=== PATIENT | male | born 1980 | race African-American/Black ===

== ENCOUNTER 2017-02-20 18:50 | Emergency (ER) | payer OTHER ==
[~2017-02-20] VITALS: Ht 172.7 cm; Wt 104.3 kg
--- OUTSIDE RECORDS SUMMARY | 2017-02-20 19:03 | XMS REPORT ---
Author Author TERRANCE HAMMONDS Organization [employer] Address Unknown Phone Unavailable Care Team Providers Care Traffic Assistant Name Role Phone TERRANCE HAMMONDS CP Unavailable Allergies No Known Allergies Problems Problem Type Condition ICD-9 Code Onset Dates Condition Status Problem Insomnia, unspecified 780.52 Active Assessment Dental examination V72.2 Active Problem Screening examination for venereal disease V74.5 Active Medications No Known Medications Procedures Procedure Coding System Code Date INTRAORL-PERIAPICAL 1 FILM 77359 CPT-4 D0220 December 07, 2014 INTRAORL-PERIAPICAL EA ADD FILM CPT-4 D0230 December 07, 2014 COMP ORAL EVALUATION - NEW/EST PT CPT-4 D0150 December 07, 2014 Dental Outreach adjust balance CPT-4 DENOR December 07, 2014 BITEWINGS - FOUR FILMS CPT-4 D0274 December 07, 2014 INTRAORL-PERIAPICAL EA ADD FILM CPT-4 D0230 December 07, 2014 TOPICAL FLUORIDE VARNISH CPT-4 D1206 December 07, 2014 PROPHYLAXIS - ADULT CPT-4 D1110 December 07, 2014 Results No Known Results Summary Purpose [employer] Submission
--- OUTSIDE RECORDS SUMMARY | 2017-02-20 19:04 | XMS REPORT | Continuity of Care Document ---
Author Author [facility] Address Unknown Phone Unavailable Allergies Medications Problems Date Dx Coded Attending Type Code Diagnosis Diagnosed By 06/20/2011 PETER PEREZ DO V69.2 sexually active high-risk 06/20/2011 KELLY LAMA APRN V69.2 sexually active high-risk 03/17/2013 PETER PEREZ DO V74.5 SCREENING EXAMINATION FOR VENEREAL DISEASE 03/17/2013 KELLY LAMA APRN V74.5 SCREENING EXAMINATION FOR VENEREAL DISEASE 11/27/2013 KELLY LAMA APRN 780.52 INSOMNIA UNSPECIFIED Procedures Code [place] [address] ROUTINE VENIPUNCTURE 03/17/2013 04479 SYPHILLIS-STATE LAB 03/17/2013 34730 GC/CHLAM URINE (STATE) 03/17/2013 55578 HIV ANTIBODIES ([facility]) 03/19/2013 Results Encounters ACCT No. Visit Date/Time Discharge Status Pt. Type Provider Facility Loc./Unit Complaint [id number] 11/27/2013 08:55:00 11/27/2013 23: 59:59 CLS Outpatient KELLY LAMA APRN [id number] 03/17/2013 16:11:00 03/17/2013 23: 59:59 CLS Outpatient PETER PEREZ DO [id number] 07/13/2015 15:26:59 ACT Unknown
[2017-02-20 19:13] LABS: MEAN PLATELET VOLUME 11.2 FL (7.4-10.4); RED BLOOD COUNT 4.57 10^6/uL (4.35-5.85); RED CELL DISTRIBUTION WIDTH 13.7 % (10.0-14.5); WHITE BLOOD COUNT 4.3 10^3/uL (4.3-11.0)
[2017-02-20] MEDS ORDERED: IOHEXOL 350 MG/ML 100 ML (OMNIPAQUE 350) VIAL IV ONE (19:15)
[2017-02-20] MEDS ORDERED: NS 100 ML (IVPB) BAG IV ONE (19:15)
[2017-02-20] MEDS ORDERED: fentaNYL INJECTION 100 MCG/2 ML AMP IVP ONE (19:15)
[2017-02-20 19:39] LABS: ALANINE AMINOTRANSFERASE 13 U/L (0-55); ALCOHOL < 10 MG/DL (<10); ANION GAP 8 MMOL/L (5-14); ASPARTATE AMINO TRANSFERASE 19 U/L (5-34); BILIRUBIN,DIRECT 0.1 MG/DL (0.0-0.3); BILIRUBIN,INDIRECT 0.3 MG/DL; BILIRUBIN,TOTAL 0.4 MG/DL (0.1-1.0); BLOOD UREA NITROGEN 11 MG/DL (7-18); BUN/CREATININE RATIO 10; CALCIUM 8.7 MG/DL (8.5-10.1); CARBON DIOXIDE 23 MMOL/L (21-32); CHLORIDE 106 MMOL/L (98-107); CREATININE SERUM 1.13 MG/DL (0.60-1.30); GFR ESTIMATED > 60; GLUCOSE 116 MG/DL (70-105); POTASSIUM 5.1 MMOL/L (3.6-5.0); SODIUM 137 MMOL/L (135-145); TOTAL PROTEIN 6.8 GM/DL (6.4-8.2)
--- NOTE | 2017-02-20 19:45 | ED Trauma-Multisystem ---
General Chief Complaint: Trauma EMS/Air Arrival Activat Stated Complaint: FALL Nursing Triage Note: patient was on sink in half-way cell, patient states he planned to fall forward to hurt himself, patient states that he slipped and fell backwards, patient reports he has severe back pain and decreased sensation in his lower extremities. patient also had emesis x 1. c-collar applied during triage. patient denies LOC Source of Information: Patient, EMS, Police (Jade rosa) Exam Limitations: No Limitations History of Present Illness Time Seen by Provider: 19:00 Initial Comments This 36-year-old young man presents to the emergency room from the local half-way where he sustained injury to his back after falling off a sink. Patient had an emotionally difficult afternoon when he learned that a loved one had . He became suicidal at that time and decided to jump off of the sink in his cell in effort to injure his head. He reports changing his mind once he was on the sink but then slipped backward falling onto a toilet. Senior Living guards report that he was draped over the toilet face up with his back extended over the toilet. His face was up against the wall. He complains of headache and lower back pain. He has been unable to move his lower extremities since the injury. Senior Living guards removed him from the toilet. EMS reports he has been unable to move his lower extremities since their arrival. He was incontinent of a small amount of stool. Patient did strike his head and vomited afterwards. There was no loss of consciousness. Patient denies suicidal ideation at the moment. Type II trauma activation was paged at 19:07. Patient did complain of some mild neck discomfort for me on exam. C-collar was placed. Allergies and Home Medications Allergies Uncoded Allergies: shellfish (Allergy, Unknown, NAUSEA, 02/20/17) Nausea, difficulty breathing Home Medications No Active Prescriptions or Reported Meds Constitutional: no symptoms reported Eyes: No Symptoms Reported Ears: No Symptoms Reported Nose: No Symptoms Reported Mouth: Other (mild jaw pain) Throat: No Symptoms to Report Respiratory: other (pain with inspiration) Cardiovascular: No Symptoms Reported Gastrointestinal: see HPI, vomiting Genitourinary: no symptoms reported Musculoskeletal: no symptoms reported Skin: no symptoms reported Psychiatric/Neurological: See HPI Past Lnmhwfx-Ioiclz-Soxgfq Hx Patient Social History Alcohol Use: Denies Use Recreational Drug Use: No Smoking Status: Never a Smoker Recent Foreign Travel: No Contact w/Someone Who Travel: No Recent Infectious Disease Expo: No Surgeries HX Surgeries: No Respiratory Hx Respiratory Disorders: No Cardiovascular Hx Cardiac Disorders: No Neurological Hx Neurological Disorders: No Reproductive System Hx Reproductive Disorders: No Genitourinary Hx Genitourinary Disorders: No Gastrointestinal Hx Gastrointestinal Disorders: No Musculoskeletal Hx Musculoskeletal Disorders: No Endocrine Hx Endocrine Disorders: No HEENT HX ENT Disorders: No Cancer Hx Cancer: No Psychosocial Hx Psychiatric Problems: Yes Behavioral Health Disorders: Anxiety Integumentary HX Skin/Integumentary Disorder: No Physical Exam General Appearance: WD/WN, Mild Distress Eyes: Bilateral Eye Normal Inspection, Bilateral Eye PERRL, Bilateral Eye EOMI Ears, Nose, Throat: Hearing Grossly Normal Neck: Normal Inspection, Supple, Tender Midline (posterior cervical spine) Cardiovascular: Regular Rate, Rhythm, No Edema, No Murmur Respiratory: Chest Non Tender, Lungs Clear, Normal Breath Sounds, No Accessory Muscle Use, No Respiratory Distress Gastrointestinal: Normal Bowel Sounds, Non Tender, Soft Genital/Rectal: Normal Genital Exam Back: Normal Inspection, No Vertebral Tenderness (lumbar spine) Extremity: Normal Inspection, No Pedal Edema Neurologic/Psychiatric: Alert, Oriented x3, barrel cutter II-XII Norm as Tested, Other ( suicidal ideation expressed just prior to injury. Patient has light sensation throughout the lower extremities bilaterally. Sensation returns to normal with pinprick around the inguinal canals bilaterally. Patient cannot move either lower extremity to any extent. 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) Skin: Normal Color, Warm/Dry Jose Coma Score Best Eye Response (Jose): (4) Open Spontaneously Best Verbal Response ([place]): (5) Oriented Best Motor Response ([place]): (6) Obeys Commands [place] Total: 15 Progress/Results/Core Measures Results/Orders Lab Results Laboratory Tests Test 02/20/17 19:00 02/20/17 20:10 Range/Units White Blood Count 4.3 4.3-11.0 10^3/uL Red Blood Count 4.57 4.35-5.85 10^6/uL Hemoglobin 13.3 13.3-17.7 G/DL Hematocrit 39 L 40-54 % Mean Corpuscular Volume 86 80-99 FL Mean Corpuscular Hemoglobin 29 25-34 PG Mean Corpuscular Hemoglobin Concent 34 32-36 G/DL Red Cell Distribution Width 13.7 10.0-14.5 % Platelet Count 190 130-400 10^3/uL Mean Platelet Volume 11.2 H 7.4-10.4 FL Sodium Level 137 135-145 MMOL/L Potassium Level 5.1 H 3.6-5.0 MMOL/L Chloride Level 106 98-107 MMOL/L Carbon Dioxide Level 23 21-32 MMOL/L Anion Gap 8 5-14 MMOL/L Blood Urea Nitrogen 11 7-18 MG/DL Creatinine 1.13 0.60-1.30 MG/DL Estimat Glomerular Filtration Rate > 60 BUN/Creatinine Ratio 10 Glucose Level 116 H 70-105 MG/DL Calcium Level 8.7 8.5-10.1 MG/DL Total Bilirubin 0.4 0.1-1.0 MG/DL Direct Bilirubin 0.1 0.0-0.3 MG/DL Indirect Bilirubin 0.3 MG/DL Aspartate Amino Transf (AST/SGOT) 19 5-34 U/L Alanine Aminotransferase (ALT/SGPT) 13 0-55 U/L Alkaline Phosphatase 53 40-136 U/L Total Protein 6.8 6.4-8.2 GM/DL Albumin 4.0 3.2-4.5 GM/DL Serum Alcohol < 10 <10 MG/DL My Orders Orders - MTIZI MYRICK MD Cbc No Diff (02/20/17 19:04) Basic Metabolic Panel (02/20/17 19:04) Liver Panel (02/20/17 19:04) Alcohol (02/20/17 19:04) End Tidal Co2 (02/20/17 19:04) Monitor-Rhythm Ecg Trace Only (02/20/17 19:04) Saline Lock/Iv-Start (02/20/17 19:04) Ct Thoracic/Lumbar Spine Wo (02/20/17 19:04) Fentanyl Injection (Sublimaze Injection (02/20/17 19:15) Ua Culture If Indicated (02/20/17 19:10) Iohexol Injection (Omnipaque 350 Mg/Ml 1 (02/20/17 19:15) Ns (Ivpb) (Sodium Chloride 0.9% Ivpb Bag (02/20/17 19:15) Ct Head/Face/Cervical Wo (02/20/17 19:17) Ct Chest/Abdomen/Pelvis Wo (02/20/17 19:42) Vital Signs/I&O Intake and Output 02/21/17 00:00 Intake Total 900 ml Balance 900 ml Progress Note #1: Progress Note Patient was seen and examined. He was sent to CT scan for examination of the complete spine, chest, abdomen, pelvis, and head. He declined pain medication. C-collar was applied and remained in place. Progress Note #2: Time: 19:44 Progress Note Nursing staff called from CT stating patient has reservations about receiving contrast due to shellfish allergy. CT orders were changed to noncontrast studies. Progress Note #3: Time: 20:05 Progress Note Patient was able to independently urinate. He still declines pain medication. CT imaging was negative for acute injuries with the exception of possible injury to the right zygomatic arch. Patient does have pain in that area. Case had been discussed with Dr. Christopher, trauma surgeon master control technician. He agrees patient should be transferred to a tertiary care facility with neurosurgical services. MRI should be completed there for further evaluation. Progress Note #4: Time: 20:20 Progress Note Case was reviewed with Dr. Burton (neurosurgeon) and Dr. Scott (ER) at [facility]. Patient was accepted for transfer. Neurologic status has not changed. Vital signs have remained stable. Dr. uBrton requested reapplication of cervical all her prior to transfer. Law-enforcement will accompany patient on transfer but affidavit was completed as a precaution due to the suicidal ideation. Diagnostic Imaging Diagonstic Imaging: CT Plain Films/CT/US/NM/MRI: facial bones, c-spine, head Comments CT head, C-spine, and face. By me and report reviewed. See report below: NAME: MARGE LEBRON [facility] REC#: [id number] PT STATUS: REG ER : 1980 PHYSICIAN: MITZI MYRICK MD ADMIT DATE: 02/20/17/ER Signed Date of Exam: 02/20/17 CT HEAD/FACE/CERVICAL WO PROCEDURE: CT head, face, and cervical spine without contrast. TECHNIQUE: Multiple contiguous axial images were obtained through the head, neck, and facial bones without the use of intravenous contrast. Sagittal and coronal reformations through the cervical spine and facial bones were also performed. INDICATION: Injury. FINDINGS: The ventricles are normal in size, shape and position. There is no acute parenchymal edema, hemorrhage or mass. There is no extra-axial mass or hemorrhage. There is no skull fracture. Maxillofacial images show cortical irregularity involving the anterior portion of the right zygomatic arch which I believe represents a fracture at this site. If this is an acute fracture this is nondepressed. No other fracture is evident. The paranasal sinuses are well aerated. No intraorbital abnormality is seen. There is normal height and alignment of the cervical spine. Disc spaces are well maintained. There is no bony stenosis. There is no fracture or other acute abnormality. IMPRESSION: 1. Normal CT of the head. 2. XR of the facial bones show irregularity of the zygomatic arch anteriorly on the right but it is difficult to determinate if this represents residual of old injury or if this is an acute fracture and correlation with physical exam is necessary. No other acute abnormality is seen. 3. CT of the cervical spine shows no acute abnormality. Dictated by: Dictated on workstation # [id number] Dict: 02/20/171936 Trans: 02/20/171950 Interpreted by: JUAN ESPINOZA MD Electronically signed by: JUAN ESPINOZA MD 02/20/171950 Diagonstic Imaging: CT Plain Films/CT/US/NM/MRI: other (thoracic and lumbar spine) Comments CT of the spine viewed by me and report reviewed. See report below: NAME: MARGE LEBRON [facility] REC#: [id number] PT STATUS: REG ER : 1980 PHYSICIAN: MITZI MYRICK MD ADMIT DATE: 02/20/17/ER Signed Date of Exam: 02/20/17 CT THORACIC/LUMBAR SPINE WO INDICATION: Fall, back pain. Axial images were obtained through the thoracolumbar spine with sagittal and coronal reformations made. FINDINGS: There is normal height and alignment of the thoracolumbar vertebral bodies. Disc spaces are well maintained. No fracture or other acute abnormality is seen. No spinal canal encroachment. There is no soft tissue mass or edema. IMPRESSION: No acute abnormality is seen. Dictated by: Dictated on workstation # [id number] Dict: 02/20/171943 Trans: 02/20/171946 Interpreted by: JUAN ESPINOZA MD Electronically signed by: JUAN ESPINOZA MD 02/20/171946 Diagonstic Imaging: CT Plain Films/CT/US/NM/MRI: chest, abdomen, pelvis Comments CT chest, abdomen and pelvis without contrast viewed by me and report reviewed. See report below: NAME: MARGE LEBRON [facility] REC#: [id number] PT STATUS: REG ER : 1980 PHYSICIAN: MITZI MYRICK MD ADMIT DATE: 02/20/17/ER Signed Date of Exam: 02/20/17 CT CHEST/ABDOMEN/PELVIS WO PROCEDURE: CT chest, abdomen, and pelvis without contrast. TECHNIQUE: Multiple contiguous axial images were obtained through the chest, abdomen, and pelvis without the use of intravenous contrast. INDICATION: Fall. Pain. CT CHEST: The lungs are clear. There is no effusion or pneumothorax. There is no mediastinal mass or hemorrhage. There is no acute bony abnormality. CT ABDOMEN/PELVIS: The liver, spleen, pancreas and adrenals are normal. The kidneys, ureters and bladder are normal. No acute bowel abnormality is seen. There is no free intraperitoneal air or fluid. There is no acute bony abnormality. IMPRESSION: CT the chest, abdomen and pelvis shows no acute abnormality. Dictated by: Dictated on workstation # [id number] Dict: 02/20/171951 Trans: 02/20/172027 Interpreted by: JUAN ESPINOZA MD Electronically signed by: JUAN ESPINOZA MD 02/20/172027 Departure Impression Impression: Primary Impression: Fall with injury Qualified Codes: W19.XXXA - Unspecified fall, initial encounter Additional Impressions: Concussion without loss of consciousness Qualified Codes: S06.0X0A - Concussion without loss of consciousness, initial encounter Lower extremity paralysis Nausea and vomiting Qualified Codes: R11.2 - Nausea with vomiting, unspecified Paresthesia of lower extremity Suicidal ideation Lower back pain Qualified Codes: M54.5 - Low back pain Disposition: XFER SHT-TRM HOSP Condition: Stable/Unchanged Transfer Transfer Notes Patient transferred to the emergency room at [facility] under the care of Dr. Scott with Dr. Burton consultation. Transfer Time: 21:06 Method of Transfer: EMS Departure-Patient Inst. Decision time for Depature: 21:06 Referrals: NO,LOCAL PHYSICIAN (PCP/Family) Primary Care Physician Scripts No Active Prescriptions or Reported Meds MITZI MYRICK MD Feb 20, 2017 19:45
--- NOTE | 2017-02-20 19:49 | Diagnostic Imaging Report ---
PROCEDURE: CT head, face, and cervical spine without contrast. TECHNIQUE: Multiple contiguous axial images were obtained through the head, neck, and facial bones without the use of intravenous contrast. Sagittal and coronal reformations through the cervical spine and facial bones were also performed. INDICATION: Injury. FINDINGS: The ventricles are normal in size, shape and position. There is no acute parenchymal edema, hemorrhage or mass. There is no extra-axial mass or hemorrhage. There is no skull fracture. Maxillofacial images show cortical irregularity involving the anterior portion of the right zygomatic arch which I believe represents a fracture at this site. If this is an acute fracture this is nondepressed. No other fracture is evident. The paranasal sinuses are well aerated. No intraorbital abnormality is seen. There is normal height and alignment of the cervical spine. Disc spaces are well maintained. There is no bony stenosis. There is no fracture or other acute abnormality. IMPRESSION: 1. Normal CT of the head. 2. XR of the facial bones show irregularity of the zygomatic arch anteriorly on the right but it is difficult to determinate if this represents residual of old injury or if this is an acute fracture and correlation with physical exam is necessary. No other acute abnormality is seen. 3. CT of the cervical spine shows no acute abnormality. Dictated by: Dictated on workstation # [id number]
--- NOTE | 2017-02-20 19:57 | Diagnostic Imaging Report ---
PROCEDURE: CT chest, abdomen, and pelvis without contrast. TECHNIQUE: Multiple contiguous axial images were obtained through the chest, abdomen, and pelvis without the use of intravenous contrast. INDICATION: Fall. Pain. CT CHEST: The lungs are clear. There is no effusion or pneumothorax. There is no mediastinal mass or hemorrhage. There is no acute bony abnormality. CT ABDOMEN/PELVIS: The liver, spleen, pancreas and adrenals are normal. The kidneys, ureters and bladder are normal. No acute bowel abnormality is seen. There is no free intraperitoneal air or fluid. There is no acute bony abnormality. IMPRESSION: CT the chest, abdomen and pelvis shows no acute abnormality. Dictated by: Dictated on workstation # [id number]
[2017-02-20 20:23] LABS: BILIRUBIN,URINE NEGATIVE (NEGATIVE); KETONES,URINE NEGATIVE (NEGATIVE); LEUKOCYTE ESTERASE ,URINE NEGATIVE (NEGATIVE); NITRITE,URINE NEGATIVE (NEGATIVE); PH,URINE 7 (5-9); PROTEIN,URINE NEGATIVE (NEGATIVE); UROBILINOGEN,URINE NORMAL (NORMAL)
[2017-02-20 20:53] LABS: SQUAMOUS EPITHELIAL CELL,UR RARE /HPF
[2017-02-20 20:54] VITALS: BP 132/89
== END 2017-02-20 20:58 | disposition short-term general hospital (02) ==
LOC: EDUNIT# 18:58 → ER 19:00
DX: S06.0X0A Concussion without loss of consciousness, initial encounter (principal); G82.20 Paraplegia, unspecified; M54.5 Low back pain; R20.2 Paresthesia of skin; R45.851 Suicidal ideations; W17.89XA Other fall from one level to another, initial encounter; Y92.143 Cell of prison as the place of occurrence of the external cause; Y99.8 Other external cause status
CPT/HCPCS: 36415; 70450; 70486; 71250; 72125; 72128; 72131; 74176; 80048; 80076; 80320; 81000; 85027

== ENCOUNTER 2022-02-21 17:45 | Emergency (ER) | payer OTHER ==
[~2022-02-21] VITALS: Ht 172.7 cm; Wt 78.5 kg
--- NOTE | 2022-02-21 18:23 | ED Psychosocial ---
General Chief Complaint: Suicidal Ideation Risk Stated Complaint: SUICIDAL IDEATION Source: patient Exam Limitations: no limitations (RIDDHI FLORES) History of Present Illness Date Seen by Provider: Feb 21, 2022 Time Seen by Provider: 18:19 Initial Comments Patient is a 41-year-old male who states he has been feeling depressed over the past 2 weeks. He states he has no job, no purpose in life, and no point of living. He states he has no friends. Has been laying around all day, every day for the past two weeks. Over the past 2 days he has had suicidal thoughts. He states he wants to walk in front of a semi-truck and "". He has a history of suicidal attempts in the past with medication overdose. He does take Invega for his mental health. Has been hospitalized for SI in the past. Patient denies of any hallucinations, homicidal thoughts, drug use or alcohol use, fever, chest pain, shortness of breath, nausea vomiting, diarrhea.. (RIDDHI FLORES) Allergies and Home Medications Allergies Uncoded Allergies: shellfish (Allergy, Unknown, NAUSEA, 02/20/17) Nausea, difficulty breathing Patient Home Medication List Home Medication List Reviewed: Yes (RIDDHI FLORES) No Active Prescriptions or Reported Meds Review of Systems Constitutional: No chills, No diaphoresis, No malaise, No weakness EENTM: No blurred vision, No double vision Respiratory: No cough, No dyspnea on exertion Cardiovascular: No chest pain, No edema Gastrointestinal: No abdominal pain, No nausea Genitourinary: No decreased output, No discharge Musculoskeletal: No back pain, No joint pain Skin: No change in color, No change in hair/nails Psychiatric/Neurological: Depressed, Other (SI) (RIDDHI FLORES) All Other Systems Reviewed Negative Unless Noted: Yes (RIDDHI FLORES) Past Kdtplmg-Lxbcwl-Zifxae Hx Past Medical History Surgeries: No Respiratory: No Cardiac: No Neurological: No Reproductive Disorders: No Genitourinary: No Gastrointestinal: No Musculoskeletal: No Endocrine: No HEENT: No Cancer: No Psychosocial: No (unable to obtain accurate history from pt due to mental status change.) Anxiety Integumentary: No Blood Disorders: No (RIDDHI FLORES) Physical Exam Vital Signs - First Documented 02/21/22 17:55 Temp 36.6 Pulse 81 Resp 18 B/P (MAP) 157/101 (119) Pulse Ox 97 O2 Delivery Room Air (BRIANA SALAZAR) Capillary Refill : (RIDDHI FLORES) Height, Weight, BMI Height: 5'8.00" Weight: 230lbs. oz. 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, no motor/sensory deficits, alert, normal mood/affect Appearance/Memory: appropriate appearance Behavior/Eye Contact: cooperative, good eye contact, normal speech Thoughts/Hallucinations: no apparent hallucination, other (SI) Skin: normal color, warm/dry (RIDDHI FLORES) Suicide Risk Suicide Risk Suicide Risk Level / RN Screen: High Low Suicide Risk Level []Suicidal Ideation WITHOUT method, intent, plan or behavior more than a month ago []]Modifiable risk factors and strong protective factors []No reported history of suicidal ideation or behavior []Patient reports/exhibits symptoms consistent with psychosis []Patient reports a plan that would be unrealistic/impossible to complete and intent []Suicide attempt prior to arrival (Indicates at LEAST Low Suicide Risk, consider other risk factors) Moderate Suicide Risk Level: []Suicidal ideation with method, WITHOUT plan, intent or behavior in the past month []Multiple risk factors and few protective factors []Patient reports intent to follow through on plan to end life if allowed to leave hospital, and has attempted to elope from the hospital High Suicide Risk Level: [x] Suicidal ideation with intent or intent with a plan in the past month [] Patient has harmed self or attempted suicide while in the hospital [] Patient has hx of or current Command Auditory hallucinations to harm self or others that they follow without hesitation [] Patient refuses to disclose plan, and indicates intent to complete [x] Patient reports plan that is possible to accomplish and/or has means to complete Risk factors supporting recommendation: [] Non-compliance with treatment (acute or chronic) [] Patient has access to or owns firearms and/or stockpiled medications [] Hx Impulsive behavior [] Pending incarceration or homelessness [] Sexual abuse [] Family history and/or exposure to suicide [] Adverse childhood experiences [] Exposure to violence or negative socio-political cultural, and economic forces [] Current or hx of substance use/abuse [] Chronic physical pain or other acute medical problem (AIDS, COPD, Cancer, etc) [] Perceived burden on family or others [] Patient has attempted to elope [] Unable to answer and/or unable to identify [] Refuses to agree to a safety plan Protective Factors supporting recommendation: [] Identifies reasons for living [] Future plans/goals [] Engaged in work or School [] Good family support network [] Good social support network [] Responsibility to family [] Belief that suicide is immoral, against their denominational beliefs [] High spirituality and involvement in congregation community [] Fear of or dying due to pain and suffering [] Established outpt psychiatric services [] Unable to answer and/or unable to identify Risk Assessment Tool Score: High (RIDDHI FLORES) Progress/Results/Core Measures Results/Orders Lab Results Laboratory Tests Test 02/21/22 18:18 02/21/22 18:25 Range/Units Urine Color YELLOW Urine Clarity CLEAR Urine pH 5.5 5-9 Urine Specific [place] 1.025 H 1.016-1.022 Urine Protein NEGATIVE NEGATIVE Urine Glucose (UA) NEGATIVE NEGATIVE Urine Ketones NEGATIVE NEGATIVE Urine Nitrite NEGATIVE NEGATIVE Urine Bilirubin NEGATIVE NEGATIVE Urine Urobilinogen 0.2 < = 1.0 MG/DL Urine Leukocyte Esterase NEGATIVE NEGATIVE Urine RBC (Auto) NEGATIVE NEGATIVE Urine RBC RARE /HPF Urine WBC NONE /HPF Urine Squamous Epithelial Cells NONE /HPF Urine Renal Epithelial Cells NONE /HPF Urine Crystals NONE /LPF Urine Bacteria NEGATIVE /HPF Urine Casts NONE /LPF Urine Mucus NEGATIVE /LPF Urine Culture Indicated NO Urine Opiates Screen NEGATIVE NEGATIVE Urine Oxycodone Screen NEGATIVE NEGATIVE Urine Methadone Screen NEGATIVE NEGATIVE Urine Propoxyphene Screen NEGATIVE NEGATIVE Urine Barbiturates Screen NEGATIVE NEGATIVE Ur Tricyclic Antidepressants Screen NEGATIVE NEGATIVE Urine Phencyclidine Screen NEGATIVE NEGATIVE Urine Amphetamines Screen NEGATIVE NEGATIVE Urine Methamphetamines Screen NEGATIVE NEGATIVE Urine Benzodiazepines Screen NEGATIVE NEGATIVE Urine Cocaine Screen NEGATIVE NEGATIVE Urine Cannabinoids Screen NEGATIVE NEGATIVE Influenza Type A (RT-PCR) Not Detected Not Detecte Influenza Type B (RT-PCR) Not Detected Not Detecte SARS-CoV-2 RNA (RT-PCR) Not Detected Not Detecte White Blood Count 5.3 4.3-11.0 10^3/uL Red Blood Count 4.23 L 4.30-5.52 10^6/uL Hemoglobin 12.2 L 13.3-17.7 g/dL Hematocrit 36 L 40-54 % Mean Corpuscular Volume 86 80-99 fL Mean Corpuscular Hemoglobin 29 25-34 pg Mean Corpuscular Hemoglobin Concent 34 32-36 g/dL Red Cell Distribution Width 13.8 10.0-14.5 % Platelet Count 199 130-400 10^3/uL Mean Platelet Volume 10.8 9.0-12.2 fL Immature Granulocyte % (Auto) 1 % Neutrophils (%) (Auto) 50 42-75 % Lymphocytes (%) (Auto) 31 12-44 % Monocytes (%) (Auto) 13 H 0-12 % Eosinophils (%) (Auto) 5 0-10 % Basophils (%) (Auto) 0 0-10 % Neutrophils # (Auto) 2.7 1.8-7.8 10^3/uL Lymphocytes # (Auto) 1.6 1.0-4.0 10^3/uL Monocytes # (Auto) 0.7 0.0-1.0 10^3/uL Eosinophils # (Auto) 0.2 0.0-0.3 10^3/uL Basophils # (Auto) 0.0 0.0-0.1 10^3/uL Immature Granulocyte # (Auto) 0.1 0.0-0.1 10^3/uL Sodium Level 138 135-145 MMOL/L Potassium Level 4.3 3.6-5.0 MMOL/L Chloride Level 103 98-107 MMOL/L Carbon Dioxide Level 23 21-32 MMOL/L Anion Gap 12 5-14 MMOL/L Blood Urea Nitrogen 15 7-18 MG/DL Creatinine 1.18 0.60-1.30 MG/DL Estimat Glomerular Filtration Rate 80 BUN/Creatinine Ratio 13 Glucose Level 158 H 70-105 MG/DL Calcium Level 9.0 8.5-10.1 MG/DL Corrected Calcium 9.2 8.5-10.1 MG/DL Total Bilirubin 0.2 0.1-1.0 MG/DL Aspartate Amino Transf (AST/SGOT) 21 5-34 U/L Alanine Aminotransferase (ALT/SGPT) 37 0-55 U/L Alkaline Phosphatase 69 40-136 U/L Total Protein 7.0 6.4-8.2 GM/DL Albumin 3.8 3.2-4.5 GM/DL Salicylates Level < 5.0 L 5.0-20.0 MG/DL Acetaminophen Level < 10 L 10-30 UG/ML Serum Alcohol < 10 <10 MG/DL (BRIANA SALAZAR) Vital Signs/I&O 02/21/22 17:55 Temp 36.6 Pulse 81 Resp 18 B/P (MAP) 157/101 (119) Pulse Ox 97 O2 Delivery Room Air (BRIANA SALAZAR) Progress Progress Note #1: Time: 00:40 Progress Note Assumed care of the patient at shift change. He has concluded his discussion with telehealth and we are awaiting to hear back from them about disposition plans. He has been given something to eat and drink and has been able to get up and go to the bathroom as needed. He has no further concerns at this time. Progress Note #2: Time: 06:00 Progress Note Patient is sleeping. We are informed by [facility] that after discharges this morning they anticipate they might be able to get him into [place] or possibly even [place], [place]. Care of the patient was transferred to Dr. Olson. Patient is still voluntary to go inpatient and we agree with this plan. He is still medically cleared. (BRIANA SALAZAR) Progress Note : Progress Note 0600--ASSUMED CARE FROM DR. SALAZAR. PENDING PLACEMENT AT THIS TIME. PT IS SLEEPING SOUNDLY AT THIS TIME. 0634--PT IS AWAKE, AND WANTING BREAKFAST, MEAL TRAY ORDERED. 0830--[facility] HAS BEEN [facility]TA[facility]. [facility] IN [place] WILL HAVE A BED, AND WILL BE REVIEWING PT'S CHART SHORTLY. 09--HAVE BEEN INFORMED THAT [place] NO LONGER HAS A BED AVAILABLE. [facility] AND [facility] DO NOT CURRENTLY HAVE BEDS. [facility] IS NOW SEE[facility]ACEMENT [facility] [place]. 1115--LUNCH TRAY HAS BEEN ORDERED FOR PT, PT CONTINUES TO REMAIN CALM AND COOPERATIVE, AND VOICES NO COMPLAINTS AT THIS TIME (CANDICE OLSON DO) Comment Sinus rhythm, 85 bpm, QRS duration 94 MS, QTc 392 MS (RIDDHI FLORES) Departure Communication (Admissions) 1040--[facility] [place] THEY WILL CALL BACK 1045--SPOKE WITH DR. ADEOLA KINSEY, SHE ACCEPTS PT FOR ADMIT. [facility] BEING CONTACT[facility] FOR TRANSPORT. 1235--TRANSPORT HERE TO TAKE PT TO [facility] [place]. (CANDICE OLSON DO) Impression Primary Impression: Depression with suicidal ideation Disposition: 65 XFER TO PSYCH HOSP/UNIT Condition: Stable Transfer Transfer Reason: Exceeds level of care (NEEDS INPATIENT PSYCHIATRIC CARE) Transfer Facility: [facility] [place] Method of Transfer: [facility] (CANDICE OLSON DO) Departure-Patient Inst. Referrals: KELLY CALDERÓN DO (PCP/Family) Primary Care Physician Patient Instructions: OUTPT MENTAL HEALTH SERVICES Scripts No Active Prescriptions or Reported Meds RIDDHI FLORES Feb 21, 2022 18:23 BRIANA SALAZAR Feb 22, 2022 00:40 CANDICE OLSON DO Feb 22, 2022 06:04
[2022-02-21 18:31] LABS: BASOPHILS % (AUTO) 0 % (0-10); EOSINOPHILS # (AUTO) 0.2 10^3/uL (0.0-0.3); EOSINOPHILS % (AUTO) 5 % (0-10); HEMATOCRIT 36 % (40-54); HEMOGLOBIN 12.2 g/dL (13.3-17.7); LYMPHOCYTES # (AUTO) 1.6 10^3/uL (1.0-4.0); LYMPHOCYTES % (AUTO) 31 % (12-44); MEAN CORPUSCULAR HEMOGLOBIN 29 pg (25-34); MEAN CORPUSCULAR HGB CONC 34 g/dL (32-36); MEAN CORPUSCULAR VOLUME 86 fL (80-99); MEAN PLATELET VOLUME 10.8 fL (9.0-12.2); MONOCYTES # (AUTO) 0.7 10^3/uL (0.0-1.0); MONOCYTES % (AUTO) 13 % (0-12); NEUTROPHILS # (AUTO) 2.7 10^3/uL (1.8-7.8); NEUTROPHILS % (AUTO) 50 % (42-75); PLATELET COUNT 199 10^3/uL (130-400); WHITE BLOOD COUNT 5.3 10^3/uL (4.3-11.0)
[2022-02-21 18:37] LABS: BILIRUBIN,URINE NEGATIVE (NEGATIVE); CLARITY,URINE CLEAR; COLOR,URINE YELLOW; GLUCOSE, URINE (UA) NEGATIVE (NEGATIVE); KETONES,URINE NEGATIVE (NEGATIVE); LEUKOCYTE ESTERASE ,URINE NEGATIVE (NEGATIVE); NITRITE,URINE NEGATIVE (NEGATIVE); PH,URINE 5.5 (5-9); PROTEIN,URINE NEGATIVE (NEGATIVE)
[2022-02-21 18:45] LABS: BACTERIA,URINE NEGATIVE /HPF; RBC,URINE RARE /HPF
[2022-02-21 18:48] LABS: ALBUMIN 3.8 GM/DL (3.2-4.5); CHLORIDE 103 MMOL/L (98-107); POTASSIUM 4.3 MMOL/L (3.6-5.0); SODIUM 138 MMOL/L (135-145)
[2022-02-21 18:49] LABS: AMPHETAMINE SCREEN, URINE NEGATIVE (NEGATIVE); BARBITURATE SCREEN URINE NEGATIVE (NEGATIVE); BENZODIAZEPINES SCREEN URINE NEGATIVE (NEGATIVE); CANNABINOID SCREEN, URINE NEGATIVE (NEGATIVE); COCAINE SCREEN URINE NEGATIVE (NEGATIVE); METHADONE STAT NEGATIVE (NEGATIVE); OPIATE SCREEN URINE NEGATIVE (NEGATIVE); OXYCODONE STAT NEGATIVE (NEGATIVE); PROPOXYPHENE STAT NEGATIVE (NEGATIVE); TRICYCLIC ANTIDEPRESSANTS SCRE NEGATIVE (NEGATIVE)
[2022-02-21 18:50] LABS: GLUCOSE 158 MG/DL (70-105)
[2022-02-21 18:52] LABS: BILIRUBIN,TOTAL 0.2 MG/DL (0.1-1.0); CARBON DIOXIDE 23 MMOL/L (21-32)
[2022-02-21 18:54] LABS: ALKALINE PHOSPHATASE 69 U/L (40-136)
[2022-02-21 18:57] LABS: ALANINE AMINOTRANSFERASE 37 U/L (0-55); SALICYLATE < 5.0 MG/DL (5.0-20.0)
[2022-02-21 19:00] LABS: ACETAMINOPHEN < 10 UG/ML (10-30)
[2022-02-21 20:10] LABS: BUN/CREATININE RATIO 13; CREATININE SERUM 1.18 MG/DL (0.60-1.30); GFR ESTIMATED 80
[2022-02-22 12:36] VITALS: BP 132/84
== END 2022-02-22 12:36 ==
LOC: EDUNIT# 17:45 → ER 17:48
DX: F32.A Depression, unspecified (principal); R45.851 Suicidal ideations; Z20.822 Contact with and (suspected) exposure to COVID-19
CPT/HCPCS: 36415; 80053; 80306; 80320; 80329; 81000; 85025; 87636; 93005

== ENCOUNTER 2022-03-16 17:17 | Emergency (ER) | payer OTHER ==
[~2022-03-16] VITALS: Ht 69.6 cm; Wt 120.0 kg
[2022-03-16 18:00] LABS: BASOPHILS % (AUTO) 1 % (0-10); EOSINOPHILS # (AUTO) 0.2 10^3/uL (0.0-0.3); EOSINOPHILS % (AUTO) 6 % (0-10); HEMATOCRIT 37 % (40-54); HEMOGLOBIN 12.4 g/dL (13.3-17.7); LYMPHOCYTES # (AUTO) 1.6 10^3/uL (1.0-4.0); LYMPHOCYTES % (AUTO) 42 % (12-44); MEAN CORPUSCULAR HEMOGLOBIN 30 pg (25-34); MEAN CORPUSCULAR HGB CONC 34 g/dL (32-36); MEAN CORPUSCULAR VOLUME 87 fL (80-99); MEAN PLATELET VOLUME 10.3 fL (9.0-12.2); MONOCYTES # (AUTO) 0.4 10^3/uL (0.0-1.0); MONOCYTES % (AUTO) 11 % (0-12); NEUTROPHILS # (AUTO) 1.5 10^3/uL (1.8-7.8); NEUTROPHILS % (AUTO) 41 % (42-75); PLATELET COUNT 206 10^3/uL (130-400); WHITE BLOOD COUNT 3.7 10^3/uL (4.3-11.0)
[2022-03-16 18:08] LABS: BILIRUBIN,URINE NEGATIVE (NEGATIVE); CLARITY,URINE CLEAR; COLOR,URINE YELLOW; GLUCOSE, URINE (UA) NEGATIVE (NEGATIVE); KETONES,URINE NEGATIVE (NEGATIVE); LEUKOCYTE ESTERASE ,URINE NEGATIVE (NEGATIVE); NITRITE,URINE NEGATIVE (NEGATIVE); PH,URINE 5.5 (5-9); PROTEIN,URINE NEGATIVE (NEGATIVE)
[2022-03-16 18:13] LABS: CHLORIDE 106 MMOL/L (98-107); SODIUM 138 MMOL/L (135-145)
[2022-03-16 18:15] LABS: CALCIUM 9.1 MG/DL (8.5-10.1)
[2022-03-16 18:16] LABS: GLUCOSE 117 MG/DL (70-105)
[2022-03-16 18:17] LABS: CARBON DIOXIDE 22 MMOL/L (21-32)
[2022-03-16 18:18] LABS: BILIRUBIN,TOTAL 0.5 MG/DL (0.1-1.0)
[2022-03-16 18:20] LABS: ALKALINE PHOSPHATASE 58 U/L (40-136); GFR ESTIMATED 78
[2022-03-16 18:21] LABS: BUN/CREATININE RATIO 14
[2022-03-16 18:22] LABS: SALICYLATE < 5.0 MG/DL (5.0-20.0)
[2022-03-16 18:23] LABS: ALANINE AMINOTRANSFERASE 27 U/L (0-55)
[2022-03-16 18:25] LABS: ACETAMINOPHEN < 10 UG/ML (10-30); BACTERIA,URINE NEGATIVE /HPF; HYALINE CASTS, URINE RARE /LPF
[2022-03-16 18:33] LABS: AMPHETAMINE SCREEN, URINE POSITIVE (NEGATIVE); BARBITURATE SCREEN URINE NEGATIVE (NEGATIVE); BENZODIAZEPINES SCREEN URINE NEGATIVE (NEGATIVE); CANNABINOID SCREEN, URINE NEGATIVE (NEGATIVE); COCAINE SCREEN URINE NEGATIVE (NEGATIVE); METHADONE STAT NEGATIVE (NEGATIVE); OPIATE SCREEN URINE NEGATIVE (NEGATIVE); OXYCODONE STAT NEGATIVE (NEGATIVE); PROPOXYPHENE STAT NEGATIVE (NEGATIVE); TRICYCLIC ANTIDEPRESSANTS SCRE NEGATIVE (NEGATIVE)
--- NOTE | 2022-03-16 19:09 | ED Psychosocial ---
General Chief Complaint: Suicidal Ideation Risk Stated Complaint: SUICIDAL Source: patient Exam Limitations: no limitations History of Present Illness Date Seen by Provider: Mar 16, 2022 Time Seen by Provider: 18:21 Initial Comments Here with report of increasing depression and suicidal ideation. States this stems from the fact that he lost all of his family a few years back including his mom, dad and sister. Currently, his girlfriend has stopped talking to him and he is not on his antidepressant. He states that the antidepressant, venlafaxine, causes him to have nighttime bedwetting and so he stopped it. He is also on a mood stabilizer but states he is not sure if it is helping. Has had previous suicide attempts including overdose, cutting his wrists and trying to walk into traffic. He is currently homeless and has the plan of trying to walk into traffic. He is tearful and seems genuine in his depression. Does admit to using some methamphetamine with fentanyl and effort to try to kill himself recently and states that he only got sleepy. He has had inpatient mental health admissions previously and states that he is amiable to that again and voluntarily and would like to be admitted to seek help. Timing/Duration: week, getting worse Severity: severe Associated Symptoms: suicidal ideation Allergies and Home Medications Allergies Uncoded Allergies: shellfish (Allergy, Unknown, NAUSEA, 02/20/17) Nausea, difficulty breathing Patient Home Medication List Home Medication List Reviewed: Yes No Active Prescriptions or Reported Meds Review of Systems Constitutional: see HPI; No chills, No fever EENTM: No nose congestion, No throat pain Respiratory: No cough, No short of breath Cardiovascular: No chest pain, No edema Gastrointestinal: No abdominal pain, No nausea, No vomiting Genitourinary: no symptoms reported Musculoskeletal: no symptoms reported Skin: no symptoms reported Psychiatric/Neurological: Depressed, Emotional Problems All Other Systems Reviewed Negative Unless Noted: Yes Past Mzsyzjz-Wlfoaj-Ivpmwe Hx Patient Social History Tobacco Use?: No Substance use?: Yes Substance type: Methamphetamine Alcohol Use?: No Immunizations Up To Date First/Initial COVID19 Vaccinat: 2020 Second COVID19 Vaccination Philip: 2020 Past Medical History Surgery/Hospitalization HX: DEPRESSION Surgeries: No Respiratory: No Cardiac: No Neurological: No Reproductive Disorders: No Genitourinary: No Gastrointestinal: No Musculoskeletal: No Endocrine: No HEENT: No Cancer: No Psychosocial: Yes Anxiety, Suicide Attempts, Depression Integumentary: No Blood Disorders: No Family Medical History Reviewed Nursing Family Hx No Pertinent Family Hx Physical Exam Vital Signs - First Documented 03/16/22 17:35 Temp 36.7 Pulse 86 Resp 20 B/P (MAP) 140/92 (108) Pulse Ox 96 O2 Delivery Room Air Capillary Refill : Height, Weight, BMI Height: 5'8.00" Weight: 230lbs. oz. [id number]; 26.00 BMI Method:Stated General Appearance: WD/WN, no apparent distress HEENT: PERRL/EOMI, pharynx normal Neck: full range of motion, supple Respiratory: lungs clear, normal breath sounds Cardiovascular: regular rate, rhythm, no murmur Gastrointestinal: non tender, soft Extremities: non-tender, normal inspection Neurologic/Psychiatric: alert, oriented x 3 Appearance/Memory: appropriate insight Behavior/Eye Contact: cooperative, avoids eye contact Thoughts/Hallucinations: no apparent hallucination; No delusions Skin: normal color, warm/dry Lymphatic: no adenopathy Progress/Results/Core Measures Results/Orders Lab Results Laboratory Tests Test 03/16/22 17:38 Range/Units White Blood Count 3.7 L 4.3-11.0 10^3/uL Red Blood Count 4.21 L 4.30-5.52 10^6/uL Hemoglobin 12.4 L 13.3-17.7 g/dL Hematocrit 37 L 40-54 % Mean Corpuscular Volume 87 80-99 fL Mean Corpuscular Hemoglobin 30 25-34 pg Mean Corpuscular Hemoglobin Concent 34 32-36 g/dL Red Cell Distribution Width 13.6 10.0-14.5 % Platelet Count 206 130-400 10^3/uL Mean Platelet Volume 10.3 9.0-12.2 fL Immature Granulocyte % (Auto) 0 % Neutrophils (%) (Auto) 41 L 42-75 % Lymphocytes (%) (Auto) 42 12-44 % Monocytes (%) (Auto) 11 0-12 % Eosinophils (%) (Auto) 6 0-10 % Basophils (%) (Auto) 1 0-10 % Neutrophils # (Auto) 1.5 L 1.8-7.8 10^3/uL Lymphocytes # (Auto) 1.6 1.0-4.0 10^3/uL Monocytes # (Auto) 0.4 0.0-1.0 10^3/uL Eosinophils # (Auto) 0.2 0.0-0.3 10^3/uL Basophils # (Auto) 0.0 0.0-0.1 10^3/uL Immature Granulocyte # (Auto) 0.0 0.0-0.1 10^3/uL Urine Color YELLOW Urine Clarity CLEAR Urine pH 5.5 5-9 Urine Specific [place] >=1.030 1.016-1.022 Urine Protein NEGATIVE NEGATIVE Urine Glucose (UA) NEGATIVE NEGATIVE Urine Ketones NEGATIVE NEGATIVE Urine Nitrite NEGATIVE NEGATIVE Urine Bilirubin NEGATIVE NEGATIVE Urine Urobilinogen 0.2 < = 1.0 MG/DL Urine Leukocyte Esterase NEGATIVE NEGATIVE Urine RBC (Auto) NEGATIVE NEGATIVE Urine RBC NONE /HPF Urine WBC NONE /HPF Urine Crystals NONE /LPF Urine Bacteria NEGATIVE /HPF Urine Casts PRESENT /LPF Urine Hyaline Casts RARE /LPF Urine Mucus SMALL H /LPF Urine Culture Indicated NO Sodium Level 138 135-145 MMOL/L Potassium Level 4.0 3.6-5.0 MMOL/L Chloride Level 106 98-107 MMOL/L Carbon Dioxide Level 22 21-32 MMOL/L Anion Gap 10 5-14 MMOL/L Blood Urea Nitrogen 17 7-18 MG/DL Creatinine 1.20 0.60-1.30 MG/DL Estimat Glomerular Filtration Rate 78 BUN/Creatinine Ratio 14 Glucose Level 117 H 70-105 MG/DL Calcium Level 9.1 8.5-10.1 MG/DL Corrected Calcium 9.1 8.5-10.1 MG/DL Total Bilirubin 0.5 0.1-1.0 MG/DL Aspartate Amino Transf (AST/SGOT) 23 5-34 U/L Alanine Aminotransferase (ALT/SGPT) 27 0-55 U/L Alkaline Phosphatase 58 40-136 U/L Total Protein 7.0 6.4-8.2 GM/DL Albumin 4.0 3.2-4.5 GM/DL TSH Holt Testing 0.42 0.35-4.94 UIU/ML Salicylates Level < 5.0 L 5.0-20.0 MG/DL Urine Opiates Screen NEGATIVE NEGATIVE Urine Oxycodone Screen NEGATIVE NEGATIVE Urine Methadone Screen NEGATIVE NEGATIVE Urine Propoxyphene Screen NEGATIVE NEGATIVE Acetaminophen Level < 10 L 10-30 UG/ML Urine Barbiturates Screen NEGATIVE NEGATIVE Ur Tricyclic Antidepressants Screen NEGATIVE NEGATIVE Urine Phencyclidine Screen NEGATIVE NEGATIVE Urine Amphetamines Screen POSITIVE H NEGATIVE Urine Methamphetamines Screen POSITIVE H NEGATIVE Urine Benzodiazepines Screen NEGATIVE NEGATIVE Urine Cocaine Screen NEGATIVE NEGATIVE Urine Cannabinoids Screen NEGATIVE NEGATIVE Serum Alcohol < 10 <10 MG/DL SARS-CoV-2 RNA (RT-PCR) Not Detected Not Detecte My Orders Orders - CHAD GODDARD MD Ekg Tracing (03/16/22 19:13) Vital Signs/I&O 03/17/22 03/17/22 03/17/22 01:02 05:34 05:46 Temp 36.7 Pulse 89 75 75 Resp 16 16 16 B/P (MAP) 123/73 (90) 136/95 (109) 136/95 Pulse Ox 97 100 100 O2 Delivery Room Air Room Air Room Air Progress Progress Note : Progress Note Seen and evaluated. Medical clearance exam and labs completed. Exam is nonconcerning but we will wait for labs. Monitor patient. 1950: Patient medically cleared for inpatient psychiatric evaluation. Screening progress has been initiated. Patient resting comfortably and has tolerated evening meal. Monitor patient. 2300: Patient is resting peacefully, pending placement. 0253: Patient resting peacefully. He has had interview with [facility] who could accept him if the [place] declines. We have discussed with the [facility] mental health and they are declining at this time as they do not have support equipment required for his sleep apnea for nighttime. I did discuss the case with Dr. Marino whitt at the [facility] emergency department who has spoken with their inpatient psychiatry service who has declined. We will proceed with placement at [facility]. 0330: [facility] has excepted the patient for transfer, Dr. Whitten accepting. Patient will go by secure transport in the morning. 0545: Secure transport service here. To go to [facility]. Patient appropriate and alert and in no distress. Initial ECG Impression Date: Mar 16, 2022 Initial ECG Impression Time: 19:20 Initial ECG Rate: 79 Initial ECG Rhythm: Normal Sinus Initial ECG Impression: Normal Comment Sinus rhythm with normal axis. No evidence of ST elevation MA. Interpreted by me. Departure Impression Primary Impression: Suicidal ideation Disposition: XFER SHT-TRM HOSP Condition: Stable Transfer Transfer Reason: Exceeds level of care Time Spoke to Accepting Phy: 03:30 Transfer Time: 05:45 Transfer Facility: [facility] psychiatric unit, Dr. Whitten accepting Method of Transfer: Sec Transp Departure-Patient Inst. Referrals: KELLY CALDERÓN DO (PCP/Family) Primary Care Physician Patient Instructions: OUTPT MENTAL HEALTH SERVICES Scripts No Active Prescriptions or Reported Meds CHAD GODDARD MD Mar 16, 2022 19:09
[2022-03-17 05:46] VITALS: BP 136/95
== END 2022-03-17 05:46 | disposition short-term general hospital (02) ==
LOC: EDUNIT# 17:17 → ER 17:20
DX: R45.851 Suicidal ideations (principal); Z59.00 Homelessness unspecified; Z91.51 Personal history of suicidal behavior; Z20.822 Contact with and (suspected) exposure to COVID-19
CPT/HCPCS: 36415; 80053; 80306; 80320; 80329; 81000; 84443; 85025; 87636; 93005

== ENCOUNTER 2022-03-21 17:14 | Emergency (ER) | payer OTHER ==
[~2022-03-21] VITALS: Ht 172 cm; Wt 120.0 kg
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
[2022-03-21 18:43] LABS: BILIRUBIN,URINE NEGATIVE (NEGATIVE); CLARITY,URINE CLEAR; COLOR,URINE YELLOW; GLUCOSE, URINE (UA) NEGATIVE (NEGATIVE); KETONES,URINE NEGATIVE (NEGATIVE); LEUKOCYTE ESTERASE ,URINE NEGATIVE (NEGATIVE); NITRITE,URINE NEGATIVE (NEGATIVE); PH,URINE 5.5 (5-9); PROTEIN,URINE NEGATIVE (NEGATIVE)
[2022-03-21 18:50] LABS: BASOPHILS % (AUTO) 0 % (0-10); EOSINOPHILS # (AUTO) 0.1 10^3/uL (0.0-0.3); EOSINOPHILS % (AUTO) 3 % (0-10); HEMATOCRIT 38 % (40-54); HEMOGLOBIN 12.5 g/dL (13.3-17.7); LYMPHOCYTES # (AUTO) 1.4 10^3/uL (1.0-4.0); LYMPHOCYTES % (AUTO) 30 % (12-44); MEAN CORPUSCULAR HEMOGLOBIN 29 pg (25-34); MEAN CORPUSCULAR HGB CONC 33 g/dL (32-36); MEAN CORPUSCULAR VOLUME 86 fL (80-99); MEAN PLATELET VOLUME 10.8 fL (9.0-12.2); MONOCYTES # (AUTO) 0.8 10^3/uL (0.0-1.0); MONOCYTES % (AUTO) 18 % (0-12); NEUTROPHILS # (AUTO) 2.2 10^3/uL (1.8-7.8); NEUTROPHILS % (AUTO) 47 % (42-75); PLATELET COUNT 218 10^3/uL (130-400); WHITE BLOOD COUNT 4.7 10^3/uL (4.3-11.0)
[2022-03-21 18:53] LABS: BACTERIA,URINE NEGATIVE /HPF; SQUAMOUS EPITHELIAL CELL,UR RARE /HPF
[2022-03-21 18:56] LABS: ALBUMIN 4.2 GM/DL (3.2-4.5); CHLORIDE 104 MMOL/L (98-107); POTASSIUM 4.4 MMOL/L (3.6-5.0); SODIUM 141 MMOL/L (135-145)
[2022-03-21 18:57] LABS: CALCIUM 9.6 MG/DL (8.5-10.1)
[2022-03-21 18:59] LABS: GLUCOSE 95 MG/DL (70-105); TOTAL PROTEIN 7.2 GM/DL (6.4-8.2)
[2022-03-21 19:00] LABS: BILIRUBIN,TOTAL 0.2 MG/DL (0.1-1.0); CARBON DIOXIDE 23 MMOL/L (21-32)
[2022-03-21 19:02] LABS: ALKALINE PHOSPHATASE 55 U/L (40-136); CREATININE SERUM 1.09 MG/DL (0.60-1.30); GFR ESTIMATED 88
[2022-03-21 19:04] LABS: BUN/CREATININE RATIO 15
[2022-03-21 19:05] LABS: SALICYLATE < 5.0 MG/DL (5.0-20.0)
[2022-03-21 19:06] LABS: ACETAMINOPHEN < 10 UG/ML (10-30); ALANINE AMINOTRANSFERASE 43 U/L (0-55)
[2022-03-21 19:14] LABS: AMPHETAMINE SCREEN, URINE NEGATIVE (NEGATIVE); BARBITURATE SCREEN URINE NEGATIVE (NEGATIVE); BENZODIAZEPINES SCREEN URINE NEGATIVE (NEGATIVE); CANNABINOID SCREEN, URINE NEGATIVE (NEGATIVE); COCAINE SCREEN URINE NEGATIVE (NEGATIVE); METHADONE STAT NEGATIVE (NEGATIVE); OPIATE SCREEN URINE NEGATIVE (NEGATIVE); OXYCODONE STAT NEGATIVE (NEGATIVE); PROPOXYPHENE STAT NEGATIVE (NEGATIVE); TRICYCLIC ANTIDEPRESSANTS SCRE NEGATIVE (NEGATIVE)
[2022-03-22 14:23] VITALS: BP 142/91
== END 2022-03-22 14:23 ==
LOC: EDUNIT# 17:14 → ER 17:15
DX: F32.A Depression, unspecified (principal); F15.10 Other stimulant abuse, uncomplicated; R45.851 Suicidal ideations; Z59.00 Homelessness unspecified; Z20.822 Contact with and (suspected) exposure to COVID-19
CPT/HCPCS: 36415; 80053; 80306; 80320; 80329; 81000; 85025; 87636; 93005